=== PATIENT | female | born 1980 | race American Indian/Alaskan Native ===

== ENCOUNTER 2018-12-20 17:45 | Emergency (ER) | payer SELFPAY ==
--- NOTE | 2018-12-20 18:41 | Event Note ---
ED Screening Note Date of service: 12/20/18 Time: 18:38 ED Screening Note: 38 y/o female c/o left knee pain and had given out. Had MCL repair last Dec. Just returned to work 3 weeks ago. This initial assessment/diagnostic orders/clinical plan/treatment(s) is/are subject to change based on patients health status, clinical progression and re- assessment by fellow clinical providers in the ED. Further treatment and workup at subsequent clinical providers discretion. Patient/guardian urged not to elope from the ED as their condition may be serious if not clinically assessed and managed. Initial orders include:
--- NOTE | 2018-12-20 19:16 | XRay Report ---
Left knee, 3 views INDICATION: Pain following injury today FINDINGS: The joint spaces are intact. No fracture, spurring or arthritic change. There is moderate t o large joint effusion however. Otherwise no abnormality. Signer Name: Karthik Smiley MD Signed: 12/20/2018 7:12 PM Workstation Name: [id number]
[2018-12-20 20:47] VITALS: BP 135/91
[2018-12-20] MEDS ORDERED: ACETAMINOPHEN 500 MG TAB PO ONE (20:54)
[2018-12-20] MEDS ORDERED: IBUPROFEN 600 MG TAB PO ONE (20:54)
[2018-12-20] MEDS ORDERED: ONDANSETRON 4 MG ODT TAB PO ONE (20:54)
--- NOTE | 2018-12-20 21:11 | Emergency Department Report ---
ED Fall HPI - General Chief Complaint: Extremity Injury, Lower Stated Complaint: LT KNEE GAVE OUT/CANT STAND Time Seen by Provider: 12/20/18 18:38 Source: patient Mode of arrival: Ambulatory - History of Present Illness Initial Comments: Patient is a 38-year-old -Turkmen female with a history of chronic left knee pain who presents to the ED with complaint of acute onset persistent severe left knee pain after she slipped, buckled and fell down on the floor at work about 5 hours ago. Patient stated that she is unable to bear weight on the left knee. Patient states that she is status post left knee surgery from a previous meniscus tear on the left knee about one year ago. Patient denies dizziness, fever, chills, nausea, vomiting, loss of consciousness, dizziness, syncope, hip pain, back pain, change in vision or head or neck injuries. 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 denies: headache, neck pain, numbness, weakness, chest paint, abdominal pain, unable to walk, lightheaded, vertigo, confusion - Related Data Previous Rx's Medication Instructions Recorded Last Taken Type Acetaminophen/Codeine [Tylenol 1 tab PO Q6H PRN #12 tab 12/20/18 Unknown Rx /Codeine # 3 tab] Cyclobenzaprine [Flexeril] 10 mg PO Q8H PRN #21 tablet 12/20/18 Unknown Rx Ibuprofen [Motrin] 800 mg PO Q8HR PRN #30 tablet 12/20/18 Unknown Rx Allergies Allergy/AdvReac Type Severity Reaction Status Date / Time No Known Allergies Allergy Verified 12/20/18 17:59 ED Review of Systems ROS: Stated complaint: LT KNEE GAVE OUT/CANT STAND Other details as noted in HPI Constitutional: denies: chills, fever Eyes: denies: eye pain, eye discharge, vision change ENT: denies: ear pain, throat pain Respiratory: denies: cough, shortness of breath, wheezing Cardiovascular: denies: chest pain, palpitations Endocrine: no symptoms reported Gastrointestinal: denies: abdominal pain, nausea, diarrhea Genitourinary: denies: urgency, dysuria, discharge Musculoskeletal: joint swelling (left knee), arthralgia (left knee). denies: back pain Skin: denies: rash, lesions Neurological: denies: headache, weakness, paresthesias Psychiatric: denies: anxiety, depression Hematological/Lymphatic: denies: easy bleeding, easy bruising ED Past Medical Hx - Past Medical History Previous Medical History?: No - Surgical History Past Surgical History?: No Additional Surgical History: left knee - Social History Smoking Status: Former Smoker Substance Use Type: Alcohol - Medications Home Medications: Home Medications Medication Instructions Recorded Confirmed Last Taken Type Acetaminophen/Codeine [Tylenol 1 tab PO Q6H PRN #12 tab 12/20/18 Unknown Rx /Codeine # 3 tab] Cyclobenzaprine [Flexeril] 10 mg PO Q8H PRN #21 tablet 12/20/18 Unknown Rx Ibuprofen [Motrin] 800 mg PO Q8HR PRN #30 tablet 12/20/18 Unknown Rx ED Physical Exam - General Limitations: No Limitations General appearance: alert, in no apparent distress - Head Head exam: Present: atraumatic, normocephalic, normal inspection - Eye Eye exam: Present: normal appearance, PERRL, EOMI Pupils: Present: normal accommodation - ENT ENT exam: Present: normal exam, normal orophraynx, mucous membranes moist, TM's normal bilaterally, normal external ear exam - Neck Neck exam: Present: normal inspection, full ROM - Respiratory Respiratory exam: Present: normal lung sounds bilaterally. Absent: respiratory distress, wheezes, rales, rhonchi, chest wall tenderness, accessory muscle use - Cardiovascular Cardiovascular Exam: Present: regular rate, normal rhythm, normal heart sounds. Absent: systolic murmur, diastolic murmur, rubs, gallop - GI/Abdominal GI/Abdominal exam: Present: soft, normal bowel sounds. Absent: tenderness, guarding, rebound, hypoactive bowel sounds, organomegaly - Extremities Exam Extremities exam: Present: normal inspection, tenderness (left knee tenderness and limited ROM due to pain), normal capillary refill, joint swelling (left knee). Absent: full ROM (limited ROM due to pain) - Back Exam Back exam: Present: normal inspection, full ROM. Absent: tenderness, muscle spasm, paraspinal tenderness - Neurological Exam Neurological exam: Present: alert, oriented X3, CN II-XII intact, normal gait, reflexes normal - Psychiatric Psychiatric exam: Present: normal affect, normal mood - Skin Skin exam: Present: warm, dry, intact, normal color. Absent: rash ED Course Vital Signs 12/20/18 12/20/18 18:02 20:39 Temperature 98.7 F 97.8 F Pulse Rate 69 59 L Respiratory 16 16 Rate Blood Pressure 120/79 Blood Pressure 135/91 [Right] O2 Sat by Pulse 99 98 Oximetry - Reevaluation(s) Reevaluation #1: 12/20/18 21:16 This is a 38-year-old -Turkmen female with no past medical history presents to the ED with complaint of acute onset severe left knee pain after she buckled and fell down landing on the left knee about 5 hours ago. In the ED, patient is alert and oriented 3 and is not in distress but appears to be in pain. Patient was treated for pain in the ED and left knee x-ray shows no acute fractures or subluxations but soft tissue swelling and effusion. Patient had her left knee splinted with Shaka wrap and patient discharged home on crutches and pain medications. Patient was advised to follow-up with her previous orthopedic surgeon in 3-5 days or alternatively follow-up with Dr. Carney the orthopedic surgeon solution manager for further evaluation. Patient was have advised to return to the ED immediately if symptoms get worse. ED Medical Decision Making - Radiology Data Radiology results: report reviewed, image reviewed Left knee x-ray shows no acute fractures or subluxations but soft tissue swelling and effusion. - Medical Decision Making This is a 38-year-old -Turkmen female with no past medical history presents to the ED with complaint of acute onset severe left knee pain after she buckled and fell down landing on the left knee about 5 hours ago. In the ED, patient is alert and oriented 3 and is not in distress but appears to be in pain. Patient was treated for pain in the ED and left knee x-ray shows no acute fractures or subluxations but soft tissue swelling and effusion. Patient had her left knee splinted with Shaka wrap and patient discharged home on crutches and pain medications. Patient was advised to follow-up with her previous orthopedic surgeon in 3-5 days or alternatively follow-up with Dr. Carney the orthopedic surgeon solution manager for further evaluation. Patient was have advised to return to the ED immediately if symptoms get worse. - Differential Diagnosis knee fracture; knee sprain; muscle strain; knee contusion Critical care attestation.: If time is entered above; I have spent that time in minutes in the direct care of this critically ill patient, excluding procedure time. ED Disposition Clinical Impression: Sprain of left knee Qualifiers: Encounter type: initial encounter Involved ligament of knee: unspecified ligament Qualified Code(s): S83.92XA - Sprain of unspecified site of left knee, initial encounter Muscle strain of left knee Qualifiers: Encounter type: initial encounter Qualified Code(s): S86.912A - Strain of unspecified muscle(s) and tendon(s) at lower leg level, left leg, initial encounter Disposition: TO HOME OR SELFCARE Is pt being admited?: No Does the pt Need Aspirin: No Condition: Stable Instructions: Knee Sprain (ED), Muscle Strain (ED) Additional Instructions: Take medication with food, drink plenty fluids and follow-up with your primary care physician in 7-10 days for reevaluation. Return to the ED immediately if symptoms get worse. Prescriptions: Cyclobenzaprine [Flexeril] 10 mg PO Q8H PRN #21 tablet PRN Reason: Muscle Spasm Ibuprofen [Motrin] 800 mg PO Q8HR PRN #30 tablet PRN Reason: Pain , Severe (7-10) Acetaminophen/Codeine [Tylenol /Codeine # 3 tab] 1 tab PO Q6H PRN #12 tab PRN Reason: Pain , Severe (7-10) Referrals: CRISTHIAN CARNEY MD [Staff Physician] - 3-5 Days Forms: Work/School Release Form(ED) Time of Disposition: 21:10 Print Language: ALBANIAN
== END 2018-12-20 21:45 | disposition home or self-care (01) ==
LOC: ED 17:45
DX: S86.912A Strain of unspecified muscle(s) and tendon(s) at lower leg level, left leg, initial encounter (principal); Z98.890 Other specified postprocedural states; Z87.891 Personal history of nicotine dependence; Z79.899 Other long term (current) drug therapy; W01.0XXA Fall on same level from slipping, tripping and stumbling without subsequent striking against object, initial encounter; Y93.89 Activity, other specified; Y92.89 Other specified places as the place of occurrence of the external cause; Y99.0 Civilian activity done for income or pay
CPT/HCPCS: Q0162